=== PATIENT | female | born 1995 | race Caucasian/White ===

== ENCOUNTER 2023-03-18 08:29 | Emergency (ER) | payer SELFPAY ==
--- NOTE | 2023-03-18 08:49 | ED.URI ---
HPI - URI/Sore Throat General Chief Complaint: Upper Respiratory Infection Stated Complaint: sorethroat,congestion,cough Time Seen by Provider: 03/18/23 08:49 Source: patient, RN notes reviewed and old records reviewed Mode of arrival: ambulatory Limitations: no limitations History of Present Illness HPI Narrative: 28-year-old female who presents to [facility] with complaints of 2 day history of sore throat, cough with some congestion and fever with highest noted around 100F. Patient reports that she took home COVID test yesterday which was negative. Patient reports that she has been taking Ibuprofen for her symptoms. Patient reports that she has had COVID vaccinations and also flu shot this season. MD elicited complaint: cough and sore throat Onset (ago): day(s) (2) Able to tolerate fluids by mouth: Yes Treatments prior to arrival: ibuprofen Related Data Home Medications Medication Instructions Recorded Confirmed norgestimate 0.25 mg-ethinyl 1 tablet PO DAILY 03/18/23 03/18/23 estradiol 35 mcg tablet (Anitha) Allergies Allergy/AdvReac Type Severity Reaction Status Date / Time No Known Allergies Allergy Verified 03/18/23 08:48 Review of Systems Review of Systems: CONSTITUTIONAL: Reports malaise, chills, sweats, or fever. EYES: Denies visual changes, redness, or discharge. ENT: Reports rhinorrhea, congestion, sinus pain, otalgia positive for sore throat. CARDIOVASCULAR: Denies chest pain, palpitations, or edema. RESPIRATORY: Reports cough.? Denies dyspnea. GASTROINTESTINAL: Denies abdominal pain, nausea, vomiting, diarrhea SKIN: Denies rash or itching. MUSCULOSKELETAL: Denies myalgia. NEUROLOGIC: Denies headache. All systems reviewed & are unremarkable except as noted in HPI and below PMFSH Past Medical History Medical History (Updated 03/21/23 @ 07:33 by Deonna Eubanks NP) Ear infection Surgical History Surgical History (Updated 03/21/23 @ 07:32 by Deonna Eubanks NP) [place] teeth extracted Social History Social History (Updated 03/21/23 @ 07:31 by Deonna Eubanks NP) Smoking status: Never smoker Alcohol intake: current Alcohol use details: social Substance use type: does not use Gender identity (if verbalized by the patient): Female Comments At time of signature, agree with nursing past medical, surgical, social and family history. There is no relevant family history pertinent to the presenting complaint Exam Narrative: GENERAL: Well-appearing, well-nourished, and in no acute distress. HEAD: Normocephalic EYES: PERRLA, conjunctivae clear ENT: Nares clear, turbinates edematous and erythematous, clear discharge. Mucous membranes moist.Left TM red and bulging Right TM pearly brandon with dull light reflex bilaterally; no tragal tenderness. Oropharynx erythematous without lesions. Tonsils red minimally enlarged and without exudate, no drooling, no hoarseness, no trismus, uvula midline.post nasal drainage present NECK: Supple. No lymphadenopathy CHEST: Clear to auscultation, breath sounds equal. No wheezing, rhonchi, rales, or stridor. No respiratory distress, speaks in full sentences. cough SAO2 100% on room air HEART: Regular rate and rhythm. No murmur heard. SKIN: Warm, dry, no rash. NEURO: Alert and oriented x3. PSYCH: Normal mood and affect Course Course Emergency Course: Patient is aware of diagnosis, understands and agrees to treatment plan.? Anticipatory guidance given.? Patient agrees to follow-up as directed and is aware of reasons to seek care at the emergency department. Portions of this record may have been created with voice recognition software Level of Care: Express Care Visit Vital Signs Vital signs: Vital Signs Temperature 36.8 C 03/18/23 08:51 Pulse Rate 100 03/18/23 08:51 Respiratory Rate 18 03/18/23 08:51 Blood Pressure 149/85 H 03/18/23 08:51 Pulse Oximetry 100 03/18/23 08:51 Oxygen Delivery Room Air
[2023-03-18 08:51] VITALS: BP 149/85; PULSE 100; RESP 18; TEMP 36.8; O2SAT 100
== END 2023-03-18 09:11 | disposition home or self-care (01) ==
PROVIDERS: Emergency Provider Registered Nurse
DX: J06.9 Acute upper respiratory infection, unspecified (principal); H65.02 Acute serous otitis media, left ear
CPT/HCPCS: 87081; 87880; 99203; G0463

== ENCOUNTER 2024-05-12 09:33 | Emergency (ER) | payer BC, SELFPAY ==
[2024-05-12 09:42] VITALS: BP 143/73; PULSE 75; RESP 18; TEMP 37; O2SAT 100
--- NOTE | 2024-05-12 09:55 | ED.URI ---
HPI - URI/Sore Throat General Chief Complaint: Upper Respiratory Infection Stated Complaint: throat pain Time Seen by Provider: 05/12/24 09:47 Source: patient, RN notes reviewed and old records reviewed Mode of arrival: ambulatory Limitations: no limitations History of Present Illness HPI Narrative: 29-year-old female to Express Care for complaint of sore throat that started yesterday. Patient endorses feeling feverish at home but had not checked her temperature. Patient endorses taking ibuprofen at 3:00 a.m. this morning for discomfort and subjective fever. Patient endorses feeling fullness in her ears with swallowing. Patient denies shortness of breath, cough, allergies. Patient able to tolerate fluids by mouth. Patient hypertensive in triage and states that it her blood pressure typically elevate when in her doctor's office. Respirations even and nonlabored. Patient in no acute distress. Related Data Home Medications Medication Instructions Recorded Confirmed drospirenone (contraceptive) 4 mg 05/12/24 05/12/24 (28) tablet (Slynd) Allergies Allergy/AdvReac Type Severity Reaction Status Date / Time No Known Allergies Allergy Verified 05/12/24 09:44 Review of Systems Review of Systems: All systems reviewed & are unremarkable except as noted in HPI and below Constitutional: Constitutional: Reports as per HPI and Reports fever(s) ( Subjective) Eyes: Eyes: Reports no additional eye complaints ENT: Reports as per HPI and Reports otalgia ( patient endorses ear fullness with swallowing) Cardiovascular: Cardiovascular: Reports no additional cardiovascular complaints, Denies chest pain and Denies dyspnea Respiratory: Respiratory: Reports no additional respiratory complaints, Denies cough and Denies dyspnea Musculoskeletal: Musculoskeletal: Reports no additional musculoskeletal complaints Neurologic: Reports system reviewed and no additional complaints, except as documented Psychiatric: Psychiatric: Reports no additional psychiatric complaints [facility] Past Medical History Medical History Ear infection Surgical History Surgical History [place] teeth extracted Social History Social History Smoking status: Never smoker Alcohol intake: current Alcohol use details: social Substance use type: does not use Gender identity (if verbalized by the patient): Female Comments At the time of my signature, I reviewed and agree with the nursing past medical, surgical, social, and family history. There is no relevant family history pertinent to the patient complaint. Exam Const: General: cooperative, no acute distress, alert, tired appearing, uncomfortable and well nourished Nutritional Appearance: well nourished Orientation/consciousness: patient oriented x3 Limitations: no limitations HENMT: Head: normal to inspection Ears: external ears normal and TM abnormal with fluid behind the TM bilateral ( purulent), with loss of landmarks bilateral and not mobile bilateral Face/Nose/Sinus: Normal external nose present, Normal nares present, normal facial exam, No erythema and No edema Face and sinus: normal facial exam, no erythema and no edema Mouth: Yes Normal oral and palatal mucosa present Throat: uvula midline, posterior oropharynx abnormal erythema and exudates and postnasal drainage Eyes: General: appearance normal, both eyes and all related structures Neck: Neck: normal visual inspection, full ROM and no meningeal signs Lymphatic: no lymphadenopathy noted and no lymphedema noted Chest: Chest palpation & inspection: normal inspection of the chest Resp: Effort & Inspection: normal respiratory effort and able to speak in complete sentences Auscultation: clear to auscultation bilaterally Cardio: Jugular venous distension:
== END 2024-05-12 10:06 | disposition home or self-care (01) ==
PROVIDERS: Emergency Provider Nurse Practitioner Family
DX: J02.0 Streptococcal pharyngitis (principal); H66.93 Otitis media, unspecified, bilateral
CPT/HCPCS: 87081; 87086; 87880; 99213; G0463

== ENCOUNTER 2024-08-29 19:07 | Emergency (ER) | payer BC, SELFPAY ==
[2024-08-29] VITALS (19 sets, daily range): BP systolic 106–164; BP diastolic 81–114; PULSE 98–120; RESP 12–18; TEMP 36.5–36.8; O2SAT 98–100
--- NOTE | ~2024-08-29 | XR_ITS ---
EXAM: XR ankle LT min 3V, XR tibia fibula LT 2V DATE: 08/29/2024 19:39 (accession [id number]), 08/29/2024 19:55 (accession [id number]) HISTORY: injury . COMPARISON: None available. FINDINGS: Exam somewhat limited due to nonstandard positioning. Distracted/displaced medial malleola r and posterior malleolar fractures. Minimally comminuted distal left fibular fracture above the leve l of the ankle joint (Brown C) with significant posterior and medial angulation of the distal fragmen t. The tibiotalar articulation is dislocated, with posterior displacement of the talus and lateral ro tation of the foot. IMPRESSION: Displaced and angulated trimalleolar fracture of the left ankle. Posterior tibiotalar dislocation with lateral rotation. Reviewed, dictated and finalized at [facility]. IMPRESSION: Displaced and angulated trimalleolar fracture of the left ankle. Posterior tibiotalar dislocation with lateral rotation.
--- NOTE | ~2024-08-29 | XR_ITS ---
EXAM: XR ankle LT 2V DATE: 08/29/2024 21:54 HISTORY: POST REDUCTION . COMPARISON: Same date at 7:53 PM. FINDINGS/IMPRESSION: Detail obscured by overlying cast material. Interval reduction of the tibiotalar dislocation. Minimal residual distraction of the medial malleolar fracture. Near-anatomic alignment of the posterior malleolar fracture. 3 mm posterior lateral displacement and mild residual angulation in the distal fibular fracture Reviewed, dictated and finalized at location K.
--- NOTE | 2024-08-29 19:44 | ED.LOWEXIN ---
HPI - Extremity Injury (Lower) General Chief Complaint: Extremity Injury, Lower <ABHIJEET Stinson Last Filed: 08/29/24 22:59> Stated Complaint: left ankle pain <ABHIJEET Stinson Last Filed: 08/29/24 22:59> Time Seen by Provider: 08/29/24 19:43 <ABHIJEET Stinson Last Filed: 08/29/24 22:59> Source: patient <ABHIJEET Stinson Last Filed: 08/29/24 22:59> Mode of arrival: EMS <ABHIJEET Stinson Last Filed: 08/29/24 22:59> Limitations: no limitations <ABHIJEET Stinson Last Filed: 08/29/24 22:59> History of Present Illness HPI Narrative: Patient is a 29 y/o female who presents to the ED via EMS with report of L ankle pain. Patient reports she was stepping off a curb when her right ankle started to roll. She tried to catch herself but fell, twisting her L ankle. C/o severe pain to L ankle. Deformity noted. Unable to ambulate. Patient given morphine en route to the ED by EMS. Denies numbness/tingling. Denies any other areas of pain. Denies HI/LOC. <ABHIJEET Stinson Last Filed: 08/29/24 22:59> Related Data Home Medications: Home Medications Medication Instructions Recorded Confirmed drospirenone (contraceptive) 4 mg 05/12/24 05/12/24 (28) tablet (Slynd) <ABHIJEET Stinson Last Filed: 08/29/24 22:59> Allergies/Adverse Reactions: Allergies Allergy/AdvReac Type Severity Reaction Status Date / Time No Known Allergies Allergy Verified 08/29/24 19:08 <ABHIJEET Stinson Last Filed: 08/29/24 22:59> Review of Systems Review of Systems: All systems reviewed & are unremarkable except as noted in HPI. <ABHIJEET Stinson Last Filed: 08/29/24 22:59> All systems reviewed & are unremarkable except as noted in HPI and below <Payton Ruvalcaba PA-C - Last Filed: 08/29/24 22:59> [facility] Past Medical History Medical History: Medical History Ear infection <Payton Ruvalcaba PA-C - Last Filed: 08/29/24 22:59> Surgical History Surgical History: Surgical History [place] teeth extracted <Payton Ruvalcaba PA-C - Last Filed: 08/29/24 22:59> Social History Social History: Social History Smoking status: Never smoker Alcohol intake: current Alcohol use details: social Substance use type: does not use Gender identity (if verbalized by the patient): Female <Payton Ruvalcaba PA-C - Last Filed: 08/29/24 22:59> Exam Narrative: GENERAL: Uncomfortable appearing, obese with BMI of 34.4, non-toxic, in moderate acute distress d/t pain. HEAD: Normocephalic, atraumatic. RESPIRATORY: Airway patent, respirations nonlabored. CARDIOVASCULAR: Regular rate and rhythm without murmurs, rubs, or gallops. Pedal pulses are palpable. MUSCULOSKELETAL: Limited range of motion of left ankle due to pain. Focal tenderness throughout L ankle. Deformity noted to base of tibia, projecting anteriorly. No skin tenting. Diffuse swelling. Sensation is intact throughout foot. Capillary refill intact. SKIN: Warm, dry, normal color. NEURO: A&O X3. Speech clear. No ataxic movements. PSYCHIATRIC: Appropriate mood and affect. Normal interaction. <Payton Ruvalcaba PA-C - Last Filed: 08/29/24 22:59> Course REPORTING COORDINATOR/PA Physician Supervision For this patient encounter, I reviewed the REPORTING COORDINATOR or PA documentation, treatment plan, and medical decision making; and I had [id number] time with this patient. <Xavier Shepherd MD - Last Filed: 08/29/24 23:02> Vital Signs Vital signs: Vital Signs Temperature 98.3 F 08/29/24 19:10 Pulse Rate 100 08/29/24 19:10 Respiratory Rate 18 08/29/24 19:10 Blood Pressure 128/95 H 08/29/24 19:10 Pulse Oximetry 100
[2024-08-29] MEDS: KETOROLAC 30 MG/ML VIAL (*BKC) IV PUSH (20:13)
[2024-08-29] MEDS: HYDROmorphone HCL INJ (*CRX) 1 MG/ML SYR 0.5 MG IV PUSH (20:13)
--- NOTE | 2024-08-29 22:15 | PC.NURSE ---
2134 edp benitez called time out 2136 time out ended 2137 edp benitez gave propofol 60mg 2139 edp benitez gave propofol 40mg 2140 Left ankle reduction by edp nico lazaro 2140 internal controls specialist Phuc and Payton BILLINGSLEY placed splint to left ankle 2141 radiology contacted for portable xray for verification of left ankle reduction 2144 edp benitez and nico lazaro verified and approved splint 2144 copier and printer field technician at bedside with portable imaging pt remained a+o x 4 during entire procedure
[2024-08-29] MEDS: PROPOFOL IV EMULSION 200 MG/20 ML VIAL 100 MG IV PUSH (22:41)
[2024-08-29] MEDS: oxyCODONE HCL (*CRX) 5 MG TAB IR PO (23:09)
== END 2024-08-29 23:43 | disposition home or self-care (01) ==
PROVIDERS: Emergency Provider Physician Assistant
DX: S82.852A Displaced trimalleolar fracture of left lower leg, initial encounter for closed fracture (principal); X50.9XXA Other and unspecified overexertion or strenuous movements or postures, initial encounter
CPT/HCPCS: 27788; 27818; 73590; 73600; 73610; 96374; 96375; 99285; A9270; J1171; J1885; J2704